=== PATIENT | female | born 1955 | race Caucasian/White ===

== ENCOUNTER 2016-06-21 12:49 | Outpatient (CLI) | payer OTHER | END 2016-06-21 12:50 | disposition home or self-care (01) | DX: N64.4 Mastodynia (principal); R92.1 Mammographic calcification found on diagnostic imaging of breast ==

== ENCOUNTER 2016-07-04 12:56 | Outpatient (CLI) | payer OTHER ==
[2016-07-04] MEDS ORDERED: BUFFERED LIDOCAINE 10 ML SYRINGE IU ONE (14:21)
[2016-07-04] MEDS ORDERED: BUPIVACAINE 0.5%-EPI 1:200000 PF 30 ML VIAL SUBQ ONE (14:21)
== END 2016-07-04 12:57 | disposition home or self-care (01) ==
DX: C50.411 Malignant neoplasm of upper-outer quadrant of right female breast (principal); D05.11 Intraductal carcinoma in situ of right breast; Z17.0 Estrogen receptor positive status [ER+]

== ENCOUNTER 2016-08-07 08:58 | Outpatient (CLI) | payer OTHER ==
[2016-08-07] MEDS ORDERED: GADOBUTROL 7.5 MMOL/7.5 ML VIAL IVP ONE (09:42)
== END 2016-08-07 08:59 | disposition home or self-care (01) ==
DX: C50.911 Malignant neoplasm of unspecified site of right female breast (principal)
CPT/HCPCS: 77059; A9585

== ENCOUNTER 2016-08-14 10:04 | Day surgery (SDC) | payer OTHER ==
[~2016-08-14 10:04] MED LIST: ceFAZolin 2 GM/50 ML 50 ML IV ONE
[2016-08-14] MEDS ORDERED: LACTATED RINGERS 1,000 ML IV ONE ×2 (12:11→15:59)
[2016-08-14] MEDS ORDERED: BUPIVACAINE 0.5% PF 30 ML VIAL INFIL ONE (14:48)
[2016-08-14] MEDS ORDERED: LIDOCAINE-MPF 2% 5 ML VIAL IM ONE (14:50)
[2016-08-14] MEDS ORDERED: fentaNYL 100 MCG/2 ML VIAL IVP ONE (14:50)
[2016-08-14] MEDS ORDERED: KETOROLAC 30 MG/ML VIAL IVP ONE (14:50)
[2016-08-14] MEDS ORDERED: DEXAMETHASONE 4 MG/ML VIAL IVP ONE (14:50)
[2016-08-14] MEDS ORDERED: ONDANSETRON 4 MG/2 ML VIAL IVP ONE (14:50)
[2016-08-14] MEDS ORDERED: PROPOFOL 200 MG/20 ML VIAL IVP ONE (14:50)
[2016-08-14] MEDS ORDERED: MIDAZOLAM 2 MG/2 ML VIAL IVP ONE (14:50)
[2016-08-14] MEDS ORDERED: BUFFERED LIDOCAINE 10 ML SYRINGE IU ONE (15:52)
[2016-08-14] MEDS ORDERED: BUPIVACAINE 0.25%-EPI 1:200000 PF 10 ML VIAL IM SCH (16:00)
[2016-08-14] MEDS ORDERED: oxyCOD/ACETAMIN 5 MG/325 MG TABLET PO ONE (17:05)
== END 2016-08-14 10:05 | disposition home or self-care (01) ==
PROC: 07B50ZX Excision of Right Axillary Lymphatic, Open Approach, Diagnostic (ICD-10-PCS; 2016-08-14)
PROC: C71L1ZZ Planar Nuclear Medicine Imaging of Upper Chest Lymphatics using Technetium 99m (Tc-99m) (ICD-10-PCS; 2016-08-14)
PROC: 0HBT0ZZ Excision of Right Breast, Open Approach (ICD-10-PCS; principal; 2016-08-14 12:30)
DX: D05.91 Unspecified type of carcinoma in situ of right breast (principal); E03.9 Hypothyroidism, unspecified; F41.0 Panic disorder [episodic paroxysmal anxiety]; Z90.710 Acquired absence of both cervix and uterus; Z80.3 Family history of malignant neoplasm of breast; Z80.0 Family history of malignant neoplasm of digestive organs; Z82.49 Family history of ischemic heart disease and other diseases of the circulatory system; Z82.3 Family history of stroke
CPT/HCPCS: 19281; 19301; 38500; 76098; 78195; A9270; A9541; J0690; J7120

== ENCOUNTER 2016-08-30 09:49 | Outpatient (CLI) | payer OTHER | END 2016-08-30 09:50 | disposition home or self-care (01) | DX: C50.911 Malignant neoplasm of unspecified site of right female breast (principal); L76.34 Postprocedural seroma of skin and subcutaneous tissue following other procedure ==

== ENCOUNTER 2017-06-10 08:00 | Outpatient (CLI) | payer OTHER ==
[2017-06-10 19:12] LABS: BASOPHILS % (AUTO) 0.8 %; EOSINOPHILS # (AUTO) 0.1 10^3/uL (0.0-0.7); EOSINOPHILS % (AUTO) 1.8 %; HGB - HEMOGLOBIN 12.9 g/dL (12.0-16.0); LYMPHOCYTES # (AUTO) 1.3 10^3/uL (1.5-3.5); LYMPHOCYTES % (AUTO) 21.4 %; MEAN CORPUSCULAR HEMOGLOBIN 31.1 pg (27.0-31.0); MEAN CORPUSCULAR HGB CONC 32.9 g/dL (32.0-36.0); MEAN CORPUSCULAR VOLUME 94.4 fL (81.0-99.0); MEAN PLATELET VOLUME 9.1 fL (7.9-10.8); MONOCYTES # (AUTO) 0.5 10^3/uL (0.0-1.0); MONOCYTES % (AUTO) 7.5 %; NEUTROPHILS # (AUTO) 4.2 10^3/uL (1.5-6.6); NEUTROPHILS % (AUTO) 68.5 %; PLT - PLATELET COUNT 298 10^3/uL (130-450); RED BLOOD COUNT 4.15 10^6/uL (4.20-5.40); RED CELL DISTRIBUTION WIDTH 13.1 % (12.0-15.0); WHITE BLOOD COUNT 6.2 x10^3/uL (4.8-10.8)
[2017-06-10 19:26] LABS: ALBUMIN 4.6 g/dL (3.2-5.5); ALBUMIN/GLOBULIN RATIO 1.9 (1.0-2.2); ALKALINE PHOSPHATASE 46 IU/L (42-121); ALT ALANINE AMINOTRANSFERASE 20 IU/L (10-60); AST ASPARTATE AMINOTRANSFERASE 23 IU/L (10-42); BILIRUBIN,TOTAL 0.6 mg/dL (0.2-1.0); BUN - BLOOD UREA NITROGEN 13 mg/dL (6-20); CALCIUM 9.5 mg/dL (8.5-10.3); CARBON DIOXIDE - CO2 27 mmol/L (21-32); CHLORIDE 99 mmol/L (101-111); CHOL/HDL RATIO 3.7 (<4.4); CHOLESTEROL 284 mg/dL; CREATININE 0.6 mg/dL (0.4-1.0); GFR - MDRD 102 (>89); GLUCOSE 110 mg/dL (70-100); HDL CHOLESTEROL 77 mg/dL; LDL CHOLESTEROL,CALCULATED 161 mg/dL; LDL/HDL RATIO 2.1 (<4.4); SODIUM 134 mmol/L (135-145); VLDL CHOLESTEROL 46 mg/dL
[2017-06-10 19:35] LABS: HB2 TOTAL 14.3 g/dL; HEMOGLOBIN A1C 0.53 g/dL; HEMOGLOBIN A1C % 5.5 % (4.6-6.2)
== END 2017-06-10 08:01 | disposition home or self-care (01) ==
LOC: LAB.WCP 08:00
PROVIDERS: ATTEND Family Medicine
DX: Z00.00 Encounter for general adult medical examination without abnormal findings (principal); R73.01 Impaired fasting glucose
CPT/HCPCS: 36415; 80053; 80061; 83036; 83721; 84443; 85025

== ENCOUNTER 2017-06-18 07:16 | Outpatient (CLI) | payer OTHER ==
[2017-06-18] MEDS ORDERED: IOPAMIDOL-300 100 ML VIAL ONE (07:28)
[2017-06-18] MEDS ORDERED: IOPAMIDOL-300 50 ML VIAL ONE (07:28)
[2017-06-18] MEDS ORDERED: IOPAMIDOL-300 50 ML VIAL PO ONE (08:37)
[2017-06-18] MEDS ORDERED: IOPAMIDOL-300 100 ML VIAL IVP ONE (08:37)
--- NOTE | 2017-06-18 19:32 | CT Report ---
DATE OF SERVICE: 06/18/2017 CT ABDOMEN AND PELVIS WITH CONTRAST: 06/18/2017 CLINICAL INDICATION: Left lower quadrant abdominal pain. COMPARISON: 01/11/[address] images of the abdomen and pelvis were obtained with 100 mL Isovue 300 intravenously as well as oral contrast. In accordance with CT protocol optimization, one or more of the following dose reduction techniques were utilized for this exam: Automated exposure control, adjustment of mA and/or KV based on patient size, or use of iterative reconstructive technique. Limited evaluation of the lung bases is unremarkable. ABDOMEN: The liver, spleen, pancreas, kidneys and adrenal glands are unremarkable. The gallbladder is not dilated. No bowel dilatation, free gas, or free fluid is present. PELVIS: Multiple colonic diverticula are present. There is pericolonic inflammation at the junction between the descending and sigmoid colon, compatible with uncomplicated diverticulitis. No abscess or perforation is identified. No free fluid is present. Postoperative changes of hysterectomy are noted. The appendix is seen in the right lower quadrant, and is normal in caliber. No adenopathy is identified. IMPRESSION: Uncomplicated diverticulitis of the distal descending/proximal sigmoid colon. No evidence of bladder fistula. TD: 06/18/2017 20:31
== END 2017-06-18 07:17 | disposition home or self-care (01) ==
LOC: DI 07:16
PROVIDERS: ATTEND Family Medicine
DX: R10.32 Left lower quadrant pain (principal); K57.32 Diverticulitis of large intestine without perforation or abscess without bleeding
CPT/HCPCS: 74177; Q9967

== ENCOUNTER 2017-07-04 08:44 | Outpatient (CLI) | payer OTHER ==
--- NOTE | 2017-07-04 17:51 | Mammography Report ---
DIGITAL DIAGNOSTIC BILATERAL MAMMOGRAM: 07/04/2017 CLINICAL INDICATION: History of right ductal carcinoma in situ, status post lumpectomy and radiation therapy. TECHNIQUE: Bilateral CC and MLO views, right true lateral and spot magnification views. COMPARISON: 08/30/2016, 06/21/2016, 06/16/2015, 11/17/2014, 05/28/2014, 2013, 06/15/2013, 06/05/2013. FINDINGS: The breasts demonstrate heterogeneously dense fibroglandular parenchyma bilaterally. Postoperative and posttreatment changes are noted in the right breast. Previously seen right breast seromas have resolved. A few coarse, typically benign calcifications are present. No suspicious masses, clustered microcalcifications, or regions of architectural distortion are identified. IMPRESSION: BENIGN FINDINGS. RECOMMENDATION: Routine annual screening unless otherwise clinically indicated. BIRADS category: 2, benign findings. STANDARD QUALIFYING STATEMENTS 1. This examination was reviewed with the aid of Computed-Aided Detection (CAD) . 2. A negative or benign imaging report should not delay biopsy if clinically suspicious findings are present. Consider surgical consultation if warranted. More than 5 % of cancers are not identified by imaging. 3. Dense breasts may obscure an underlying neoplasm. TD: 07/04/2017 17:50 CITLALLI
== END 2017-07-04 08:45 | disposition home or self-care (01) ==
LOC: DI 08:44
PROVIDERS: ATTEND Internal Medicine Hematology & Oncology
DX: C50.411 Malignant neoplasm of upper-outer quadrant of right female breast (principal)
CPT/HCPCS: 77066

== ENCOUNTER 2017-10-03 08:00 | Outpatient (CLI) | payer OTHER ==
[2017-10-03 13:01] LABS: CHOL/HDL RATIO 4.1 (<4.4); CHOLESTEROL 294 mg/dL; HDL CHOLESTEROL 72 mg/dL; LDL CHOLESTEROL,CALCULATED 198 mg/dL; LDL/HDL RATIO 2.8 (<4.4); VLDL CHOLESTEROL 24 mg/dL
== END 2017-10-03 08:01 ==
LOC: LAB.WCP 08:00
PROVIDERS: ATTEND Naturopath
DX: M85.80 Other specified disorders of bone density and structure, unspecified site (principal); E78.00 Pure hypercholesterolemia, unspecified
CPT/HCPCS: 36415; 80061; 82306; 83721

== ENCOUNTER 2018-01-21 14:35 | Outpatient (CLI) | payer OTHER ==
--- NOTE | 2018-01-21 15:34 | Mammography Report ---
Reason: RT BREAST CA Procedure Date: 01/21/2018 Accession Number: [id number] / [id number] Procedure: YARIEL - Diagnostic Dig RT CPT Code: FULL RESULT: EXAM: Diagnostic Dig RT DATE: 01/21/2018 3:11 PM CLINICAL HISTORY: Status post right lumpectomy for breast cancer TECHNIQUE: Unilateral right CC and MLO projections COMPARISON: 07/04/2017, 08/30/2016, 07/04/2016, 06/21/2016 and 06/16/2015 FINDINGS: There are scattered fibroglandular densities. Postsurgical changes in the right breast are similar to previous. No new suspicious microcalcifications or dominant mass. IMPRESSION: Benign findings RECOMMENDATION: Follow-up bilateral mammography in 6 months to include magnification views on the right. BIRADS CATEGORY 2: Benign findings STANDARD QUALIFYING STATEMENTS: 1. This examination was reviewed with the aid of Computer-Aided Detection (CAD). 2. A negative or benign imaging report should not delay biopsy if clinically suspicious findings are present. Consider surgical consultation if warrented. More than 5% of cancers are not identified by imaging. 3. Dense breasts may obscure an underlying neoplasm.
== END 2018-01-21 14:36 | disposition home or self-care (01) ==
LOC: DI 14:35
PROVIDERS: ATTEND Family Medicine
DX: C50.911 Malignant neoplasm of unspecified site of right female breast (principal)

== ENCOUNTER 2018-02-11 09:27 | Outpatient (CLI) | payer OTHER ==
--- NOTE | 2018-02-11 11:10 | Ultrasound Report ---
Reason: R BREAST INVASIVE DUCTAL CARCINOMA Procedure Date: 02/11/2018 Accession Number: [id number] / [id number] Procedure: US - Breast Unilateral Limited CPT Code: FULL RESULT: EXAM: Breast Unilateral Limited DATE: 02/11/2018 10:31 AM CLINICAL HISTORY: Right breast invasive ductal carcinoma status post lumpectomy. COMPARISON: Mammogram 01/21/2018. FINDINGS AND TECHNIQUE: Focused breast ultrasound was performed over the area of concern near the exam which is causing the patient discomfort and feels swollen to the patient. Normal scar tissue is identified as well as a 0.5 x 0.4 cm fluid collection deep to the scar which is surrounded by a hypoechoic 2 mm rim. This is felt to represent postsurgical changes, possibly a seroma and therefore probably benign. IMPRESSION: Probably benign postsurgical changes. Recommendation: Diagnostic ultrasound in 6 months. BI-RADS 3 RADIA
== END 2018-02-11 09:28 | disposition home or self-care (01) ==
LOC: DI 09:27
PROVIDERS: ATTEND Internal Medicine Hematology & Oncology
DX: D05.11 Intraductal carcinoma in situ of right breast (principal)
CPT/HCPCS: 76642

== ENCOUNTER 2018-06-13 08:00 | Outpatient (CLI) | payer BC ==
[2018-06-13 13:36] LABS: BASOPHILS % (AUTO) 0.8 %; EOSINOPHILS # (AUTO) 0.3 10^3/uL (0.0-0.7); EOSINOPHILS % (AUTO) 6.2 %; HGB - HEMOGLOBIN 13.1 g/dL (12.0-16.0); LYMPHOCYTES # (AUTO) 1.2 10^3/uL (1.5-3.5); LYMPHOCYTES % (AUTO) 24.8 %; MEAN CORPUSCULAR HEMOGLOBIN 31.5 pg (27.0-31.0); MEAN CORPUSCULAR HGB CONC 33.9 g/dL (32.0-36.0); MEAN CORPUSCULAR VOLUME 92.7 fL (81.0-99.0); MEAN PLATELET VOLUME 8.7 fL (7.9-10.8); MONOCYTES # (AUTO) 0.5 10^3/uL (0.0-1.0); MONOCYTES % (AUTO) 11.3 %; NEUTROPHILS # (AUTO) 2.7 10^3/uL (1.5-6.6); NEUTROPHILS % (AUTO) 56.9 %; PLT - PLATELET COUNT 270 10^3/uL (130-450); RED BLOOD COUNT 4.16 10^6/uL (4.20-5.40); RED CELL DISTRIBUTION WIDTH 12.9 % (12.0-15.0); WHITE BLOOD COUNT 4.8 x10^3/uL (4.8-10.8)
[2018-06-13 13:55] LABS: ALBUMIN 4.1 g/dL (3.2-5.5); ALBUMIN/GLOBULIN RATIO 1.7 (1.0-2.2); ALKALINE PHOSPHATASE 43 IU/L (42-121); ALT ALANINE AMINOTRANSFERASE 19 IU/L (10-60); AST ASPARTATE AMINOTRANSFERASE 21 IU/L (10-42); BILIRUBIN,TOTAL 0.5 mg/dL (0.2-1.0); BUN - BLOOD UREA NITROGEN 16 mg/dL (6-20); CALCIUM 9.3 mg/dL (8.5-10.3); CARBON DIOXIDE - CO2 29 mmol/L (21-32); CHLORIDE 99 mmol/L (101-111); CHOL/HDL RATIO 3.9 (<4.4); CHOLESTEROL 295 mg/dL; CREATININE 0.6 mg/dL (0.4-1.0); GFR - MDRD 102 (>89); GLUCOSE 98 mg/dL (70-100); HDL CHOLESTEROL 76 mg/dL; LDL CHOLESTEROL,CALCULATED 183 mg/dL; LDL/HDL RATIO 2.4 (<4.4); MAGNESIUM 2.5 mg/dL (1.7-2.8); SODIUM 134 mmol/L (135-145); TOTAL PROTEIN 6.5 g/dL (6.7-8.2); VLDL CHOLESTEROL 36 mg/dL
== END 2018-06-13 23:59 | disposition home or self-care (01) ==
LOC: LAB.WCP 08:00
PROVIDERS: ATTEND Family Medicine
DX: C50.919 Malignant neoplasm of unspecified site of unspecified female breast (principal); E03.9 Hypothyroidism, unspecified; E78.5 Hyperlipidemia, unspecified; R00.2 Palpitations
CPT/HCPCS: 36415; 80053; 80061; 83721; 83735; 84443; 85025

== ENCOUNTER 2018-07-09 12:45 | Outpatient (CLI) | payer BC | END 2018-07-09 12:46 | disposition home or self-care (01) | LOC: DI 12:45 | PROVIDERS: ATTEND Family Medicine | DX: R00.2 Palpitations (principal); Z92.3 Personal history of irradiation | CPT/HCPCS: 93306 ==

== ENCOUNTER 2018-07-23 12:40 | Outpatient (CLI) | payer BC ==
--- NOTE | 2018-07-23 17:25 | Ultrasound Report ---
Reason: RT BREAST INVASIVE DUCTAL CARCINOMA Procedure Date: 07/23/2018 Accession Number: [id number] / [id number] Procedure: US - Breast Unilateral Limited CPT Code: FULL RESULT: EXAM: Breast Unilateral Limited DATE: 07/23/2018 3:30 PM CLINICAL HISTORY: RT BREAST INVASIVE DUCTAL CARCINOMA COMPARISON: Mammogram 01/21/2018 and ultrasound 02/11/2018. FINDINGS AND TECHNIQUE: Focused breast ultrasound was performed over the area area of the incisional scar, previously seen focal area of concern. Normal-appearing scar tissue is identified with interval resolution of a previously seen 0.5 x 0.4 cm fluid collection deep to the scar, probably benign. No suspicious interval mass or collection. IMPRESSION: Probably benign postsurgical changes. Recommendation: Diagnostic right breast mammogram in 6 months and annual left breast screening mammography. BI-RADS 3 RADIA
== END 2018-07-23 12:41 | disposition home or self-care (01) ==
LOC: DI 12:40
PROVIDERS: ATTEND Family Medicine
DX: C50.911 Malignant neoplasm of unspecified site of right female breast (principal)
CPT/HCPCS: 76642

== ENCOUNTER 2018-07-23 12:41 | Outpatient (CLI) | payer BC ==
--- NOTE | 2018-07-24 08:15 | Mammography Report ---
Reason: ANNUAL / HX RIGHT BREAST CA 2017 Procedure Date: 07/24/2018 Accession Number: [id number] / [id number] Procedure: YARIEL - Diagnostic Bilat 3D Jackson CPT Code: 30328 FULL RESULT: EXAM: Diagnostic Dig Bilat, Diagnostic Bilat 3D Jackson DATE: 07/24/2018 7:58 AM CLINICAL HISTORY: Diagnostic encounter. History of nulliparity. History of breast cancer status post right breast lumpectomy and radiation. TECHNIQUE: Bilateral CC and MLO and laterally exaggerated CC images are obtained. Right spot CC, right spot ML and right ML images were also obtained. COMPARISON: 01/21/2018 and 07/04/2017. FINDINGS: The breasts demonstrate scattered fibroglandular densities bilaterally. Right breast postsurgical changes are redemonstrated without suspicious interval development of mass, calcifications or unexpected architectural distortion, probably benign. No suspicious calcifications, masses or architectural distortion is seen in the left breast. IMPRESSION: Probable benign findings RECOMMENDATION: Recommend diagnostic right mammogram in 6 months, annual screening mammography of the left breast. BIRADS CATEGORY 3 STANDARD QUALIFYING STATEMENTS: 1. This examination was not reviewed with the aid of Computer-Aided Detection (CAD). 2. A negative or benign imaging report should not delay biopsy if clinically suspicious findings are present. Consider surgical consultation if warrented. More than 5% of cancers are not identified by imaging. 3. Dense breasts may obscure an underlying neoplasm. 4. This examination was reviewed with the aid of 3D imaging (tomography).
--- NOTE | 2018-07-24 08:15 | Mammography Report ---
Reason: ANNUAL / HX OF BREAST CA 2017 Procedure Date: 07/24/2018 Accession Number: [id number] / [id number] Procedure: YARIEL - Diagnostic Dig Bilat CPT Code: FULL RESULT: EXAM: Diagnostic Dig Bilat, Diagnostic Bilat 3D Jackson DATE: 07/24/2018 7:58 AM CLINICAL HISTORY: Diagnostic encounter. History of nulliparity. History of breast cancer status post right breast lumpectomy and radiation. TECHNIQUE: Bilateral CC and MLO and laterally exaggerated CC images are obtained. Right spot CC, right spot ML and right ML images were also obtained. COMPARISON: 01/21/2018 and 07/04/2017. FINDINGS: The breasts demonstrate scattered fibroglandular densities bilaterally. Right breast postsurgical changes are redemonstrated without suspicious interval development of mass, calcifications or unexpected architectural distortion, probably benign. No suspicious calcifications, masses or architectural distortion is seen in the left breast. IMPRESSION: Probable benign findings RECOMMENDATION: Recommend diagnostic right mammogram in 6 months, annual screening mammography of the left breast. BIRADS CATEGORY 3 STANDARD QUALIFYING STATEMENTS: 1. This examination was not reviewed with the aid of Computer-Aided Detection (CAD). 2. A negative or benign imaging report should not delay biopsy if clinically suspicious findings are present. Consider surgical consultation if warrented. More than 5% of cancers are not identified by imaging. 3. Dense breasts may obscure an underlying neoplasm. 4. This examination was reviewed with the aid of 3D imaging (tomography).
--- NOTE | 2018-07-24 08:49 | DEXA Report ---
Reason: R BREAST INVASIVE DUCTAL CARCINOMA Procedure Date: 07/23/2018 Accession Number: [id number] / [id number] Procedure: DEX - Dexa Spine and/or Hip CPT Code: FULL RESULT: EXAM: Dexa Spine and/or Hip DATE: 07/23/2018 2:17 PM CLINICAL HISTORY: R BREAST INVASIVE DUCTAL CARCINOMA TECHNIQUE: Dual energy x-ray absorptiometry (DXA) was performed on a [employer] System. Regions measured are the AP Spine, femoral neck, and if needed forearm. COMPARISON: 10/29/2016. In accordance with the International Society for Clinical Densitometry (ISCD) guidelines, data from previous exams may be reanalyzed using current recommendations and techniques. This is done to allow a more accurate basis for comparison with the current study. FINDINGS: The data for the lumbar spine is as follows: BMD (g/cm/cm) T-SCORE Z-SCORE REGION L1 0.931 -1.7 0.0 L2 1.004 -1.6 0.0 L3 1.063 -1.1 0.5 L4 1.090 -0.9 0.7 TOTAL 1.026 -1.3 0.4 NOTE: All evaluable vertebrae are used for classification The data for the hip is as follows: BMD (g/cm/cm) T-SCORE Z-SCORE REGION Neck 0.893 -1.0 0.5 TOTAL 0.923 -0.7 0.6 NOTE: The femoral neck or total proximal femur, whichever is lowest, is used for classification. DXA RESULTS SUMMARY: Spine SCAN DATE AGE BMD CHANGE VS CHANGE VS PREVIOUS PREVIOUS % [birth year][age]23[birth year]2018 [age] 1.026 0.002 0.2 10/29/2016 61.5 1.024 * Denotes significant change at the 95% confidence level. Denotes dissimilar scan types or analysis methods. DXA RESULTS SUMMARY: Hip SCAN DATE AGE BMD CHANGE VS CHANGE VS PREVIOUS PREVIOUS % [birth year]23/2018 61.2 0.923 -0.030 -3.1 10/29/2016 61.5 0.953 * Denotes significant change at the 95% confidence level. Denotes dissimilar scan types or analysis methods. IMPRESSION: THE WHO CLASSIFICATION BASED ON THE INTERNATIONAL REFERENCE STANDARD IS OSTEOPENIA. THE FRACTURE RISK IS INCREASED. RECOMMENDATION: Patients with diagnosis of osteoporosis or osteopenia should have regular bone mineral density assessment. For those eligible for Medicare, routine testing is allowed once every 2 years. Testing frequency can be increased for patients who have rapidly progressing disease or for those who are receiving medical therapy to restore bone mass. COMMENT: World Health Organization (WHO) definitions for osteoporosis and osteopenia: NORMAL BMD: T-score at -1.0 or higher, fracture risk is low OSTEOPENIA BMD: T-score between -1.0 and -2.5, fracture risk is increased. OSTEOPOROSIS BMD: T-score at -2.5 or lower, fracture risk is high. National Osteoporosis Foundation recommends: 1. Obtain adequate dietary calcium (at least 1200 mg per day) and vitamin D (400-800 international units per day). 2. Participate, as appropriate, in regular weightbearing and muscle-strengthening exercise. 3. Avoid tobacco use and reduce alcohol and caffeine intake. 4. For more detailed information see the website at www.NOF.org.
== END 2018-07-23 12:42 | disposition home or self-care (01) ==
LOC: DI 12:41
PROVIDERS: ATTEND Internal Medicine Hematology & Oncology
DX: C50.911 Malignant neoplasm of unspecified site of right female breast (principal); M85.89 Other specified disorders of bone density and structure, multiple sites
CPT/HCPCS: 76642; 77062; 77066; 77080

== ENCOUNTER 2019-01-15 08:50 | Outpatient (CLI) | payer BC ==
--- NOTE | 2019-01-15 09:55 | Mammography Report ---
Reason: RT BREAST INVASIVE DUCTAL CA Procedure Date: 01/15/2019 Accession Number: [id number] / [id number] Procedure: YARIEL - Diagnostic Dig RT CPT Code: FULL RESULT: EXAM: Diagnostic Dig RT DATE: 01/15/2019 9:45 AM CLINICAL HISTORY: Diagnostic examination. Personal history of right breast cancer status post lumpectomy in July 2016. TECHNIQUE: (R) - Right CC, laterally exaggerated CC, MLO views were obtained. Right ML view was obtained. COMPARISON: 07/23/2018 through 06/16/2015. PARENCHYMAL PATTERN: (A) - The breast(s) demonstrate(s) scattered fibroglandular densities. FINDINGS: Postsurgical changes in the right breast demonstrate expected interval evolution, probably benign. There are no suspicious masses, calcifications, or areas of distortion. IMPRESSION: Probably Benign. BI-RADS category 3. RECOMMENDATION: (12MOS) - Recommend 12 month follow-up exam. Diagnostic exam of the right breast at the time of annual screening mammography of the left breast. BI-RADS CATEGORY: (3) - Probably Benign. STANDARD QUALIFYING STATEMENTS: 1. This examination was not reviewed with the aid of Computer-Aided Detection (CAD). 2. A negative or benign imaging report should not preclude biopsy if clinically suspicious findings are present. 3. Dense breasts may obscure an underlying neoplasm. 4. This examination was reviewed with the aid of 3D breast imaging (tomosynthesis).
== END 2019-01-15 08:51 | disposition home or self-care (01) ==
LOC: DI 08:50
PROVIDERS: ATTEND Internal Medicine Hematology & Oncology
DX: C50.911 Malignant neoplasm of unspecified site of right female breast (principal)

== ENCOUNTER 2019-06-16 07:55 | Outpatient (CLI) | payer MEDICAID ==
[2019-06-16 08:17] LABS: BASOPHILS % (AUTO) 0.6 %; EOSINOPHILS # (AUTO) 0.1 10^3/uL (0.0-0.7); EOSINOPHILS % (AUTO) 2.4 %; LYMPHOCYTES # (AUTO) 1.5 10^3/uL (1.5-3.5); LYMPHOCYTES % (AUTO) 31.8 %; MEAN CORPUSCULAR HEMOGLOBIN 30.6 pg (27.0-31.0); MEAN CORPUSCULAR HGB CONC 32.5 g/dL (32.0-36.0); MEAN CORPUSCULAR VOLUME 94.1 fL (81.0-99.0); MEAN PLATELET VOLUME 9.5 fL (7.9-10.8); MONOCYTES # (AUTO) 0.5 10^3/uL (0.0-1.0); MONOCYTES % (AUTO) 11.4 %; NEUTROPHILS # (AUTO) 2.5 10^3/uL (1.5-6.6); NEUTROPHILS % (AUTO) 53.6 %; PLT - PLATELET COUNT 264 10^3/uL (130-450); RED BLOOD COUNT 4.25 10^6/uL (4.20-5.40); RED CELL DISTRIBUTION WIDTH 11.9 % (12.0-15.0); WHITE BLOOD COUNT 4.7 x10^3/uL (4.8-10.8)
[2019-06-16 08:29] LABS: ALBUMIN 4.4 g/dL (3.2-5.5); ALBUMIN/GLOBULIN RATIO 1.8 (1.0-2.2); ALKALINE PHOSPHATASE 37 IU/L (42-121); ALT ALANINE AMINOTRANSFERASE 21 IU/L (10-60); AST ASPARTATE AMINOTRANSFERASE 19 IU/L (10-42); BILIRUBIN,TOTAL 0.9 mg/dL (0.2-1.0); BUN - BLOOD UREA NITROGEN 15 mg/dL (6-20); CALCIUM 9.2 mg/dL (8.5-10.3); CARBON DIOXIDE - CO2 28 mmol/L (21-32); CHLORIDE 96 mmol/L (101-111); CHOL/HDL RATIO 4.5 (<4.4); CHOLESTEROL 318 mg/dL; CREATININE 0.7 mg/dL (0.4-1.0); GFR - MDRD 85 (>89); GLUCOSE 111 mg/dL (70-100); HDL CHOLESTEROL 71 mg/dL; LDL CHOLESTEROL,CALCULATED 215 mg/dL; SODIUM 135 mmol/L (135-145); TOTAL PROTEIN 6.9 g/dL (6.7-8.2); VLDL CHOLESTEROL 32 mg/dL
[2019-06-16 08:36] LABS: HEMOGLOBIN A1C 0.57 g/dL; HEMOGLOBIN A1C % 5.9 % (4.6-6.2)
== END 2019-06-16 07:56 | disposition home or self-care (01) ==
LOC: LAB 07:55
PROVIDERS: ATTEND Family Medicine
DX: Z00.00 Encounter for general adult medical examination without abnormal findings (principal); E78.5 Hyperlipidemia, unspecified; R73.01 Impaired fasting glucose; E03.9 Hypothyroidism, unspecified
CPT/HCPCS: 36415; 80053; 80061; 83036; 83721; 84443; 85025

== ENCOUNTER 2019-07-23 09:17 | Outpatient (CLI) | payer MEDICAID ==
--- NOTE | 2019-07-23 16:09 | Mammography Report ---
Reason: RT BREAST CA Procedure Date: 07/23/2019 Accession Number: [id number] / [id number] Procedure: YARIEL - Diagnostic Dig Bilat CPT Code: Final Report FULL RESULT: EXAM: Diagnostic Dig Bilat, Breast Unilateral Limited DATE: 07/23/2019 10:38 AM CLINICAL HISTORY: Personal history of right breast cancer status post right breast lumpectomy in 2017. TECHNIQUE: (B) - Bilateral CC and MLO views were obtained. Right spot CC, right laterally exaggerated CC, right spot MLO and right ML images are obtained. Focused right breast ultrasound is performed. COMPARISON: 01/15/2019 through 05/31/2009. PARENCHYMAL PATTERN: (A) - The breast(s) demonstrate(s) scattered fibroglandular densities. FINDINGS: Postsurgical changes in the right breast are again seen with interval evolution of the surgical scar including increased architectural distortion and subjectively decreased volume of the central hyperdensity. Focused right breast ultrasound is performed which demonstrates no interval increase in size of the central solid soft tissue component to the surgical site with overall maximal dimensions of 0.6 x 0.6 x 0.6 cm when remeasured in similar fashion, not increased and probably benign. There are no suspicious masses, calcifications, or areas of distortion on either side. IMPRESSION: Probably Benign. BI-RADS category 3. RECOMMENDATION: (6MOS) - Recommend 6 month follow-up exam. Right breast mammogram and ultrasound. BI-RADS CATEGORY: (3) - Probably Benign. STANDARD QUALIFYING STATEMENTS: 1. This examination was not reviewed with the aid of Computer-Aided Detection (CAD). 2. A negative or benign imaging report should not preclude biopsy if clinically suspicious findings are present. 3. Dense breasts may obscure an underlying neoplasm. 4. This examination was reviewed with the aid of 3D breast imaging (tomosynthesis).
== END 2019-07-23 09:18 | disposition home or self-care (01) ==
LOC: DI 09:17
PROVIDERS: ATTEND Internal Medicine Hematology & Oncology
DX: C50.911 Malignant neoplasm of unspecified site of right female breast (principal)
CPT/HCPCS: 76642; 77066

== ENCOUNTER 2020-01-04 07:18 | Outpatient (CLI) | payer MEDICAID ==
[2020-01-04] MEDS ORDERED: GADOBUTROL 7.5 MMOL/7.5 ML VIAL ONE (07:30)
[2020-01-04] MEDS ORDERED: GADOBUTROL 7.5 MMOL/7.5 ML VIAL IVP ONE (08:22)
--- NOTE | 2020-01-12 09:27 | MRI Report ---
BREAST MRI OF BOTH BREASTS: 01/04/2020 CLINICAL: Post right lumpectomy. PROCEDURE: MR BREAST BILATERAL WITH CAD INDICATIONS: 2017 lumpectomy, right side. follow up exam. TECHNIQUE: The patient was placed prone in a dedicated breast imaging coil. Precontrast axial STIR and 3D FLASH without fat saturation sequences were obtained. Both before and after bolus injection of contrast, sequential 1-minute axial 3D FLASH with fat saturation sequences for 3 time points, with subtraction images and maximum intensity projections (MIPs) generated. Delayed sagittal FLASH images with fat s aturation were also obtained. Computer-aided detection, including computer algorithm analysis of MRI image data for lesion detectio n and characterization, pharmacokinetic analysis, with further physician review for interpretation, w as performed. COMPARISON: None. FINDINGS: Image quality: Excellent. There is minimal right and moderate left background parenchymal enhancement. Right breast: Lumpectomy scar is present within the lower outer quadrant of the right breast. No orta spicious enhancement or mass lesions within the right breast. Left breast: No suspicious enhancement or mass lesions within the left breast. Miscellaneous: No axillary or intramammary adenopathy. Visualized portions of the heart, mediastinu m, lungs, and upper abdomen are grossly unremarkable. IMPRESSION: NEGATIVE Postsurgical change. No suspicious findings. Negative breast MRI. This exam was interpreted at Station ID: [id number]. Electronically Signed By: Lisa Collier M.D. lk/:01/07/2020 10:25:10 ACR BI-RADS Category 1: Negative 3341F BI-RADS CATEGORY: (1) - 1 RECOMMENDATION: (ADDMAM) - Recommend additional mammographic views. recall n/a LATERALITY: (B)
== END 2020-01-04 07:19 | disposition home or self-care (01) ==
LOC: DI 07:18
PROVIDERS: ATTEND Internal Medicine Hematology & Oncology
DX: Z08 Encounter for follow-up examination after completed treatment for malignant neoplasm (principal); Z85.3 Personal history of malignant neoplasm of breast
CPT/HCPCS: 77049; A9585

== ENCOUNTER 2020-02-05 08:44 | Outpatient (CLI) | payer MEDICAID ==
--- NOTE | 2020-02-10 08:42 | Ultrasound Report ---
LIMITED ULTRASOUND OF RIGHT BREAST: 02/05/2020 CLINICAL: Short term follow up right breast biopsy. Comparison is made to exams dated: 02/05/2020 mammogram and 01/04/2020 breast MRI - [facility]. Color flow and real-time ultrasound of the right breast were performed. Feldman scale images of the alfonso l-time examination were reviewed. There is a stable benign irregular post-surgical scar in the right breast at 10 o'clock middle depth. This irregular post-surgical scar is hypoechoic. This correlates with mammography findings. Color flow imaging demonstrates that there is no vascularity present. No discrete soft tissue nodule is s een on the current exam to correspond to the previously mentioned 6mm nodule. IMPRESSION: BENIGN There is no sonographic evidence of malignancy. The irregular post-surgical scar in the right breast is stable and benign. Return to annual mammogram screening schedule is recommended. Future imaging is recommended as follows: 07/23/2020 screening mammogram. Findings and recommendations were conveyed to the patient at time of exam. This exam was interpreted at Station ID: [id number]. Electronically Signed By: Emily hernandez/:02/05/2020 10:48:48 Ultrasound BI-RADS: 2 Benign BI-RADS CATEGORY: (2) - 2 RECOMMENDATION: (ANNUAL) - Recommend routine annual screening mammography. [id number] return to screening LATERALITY: (B)
--- NOTE | 2020-02-10 08:42 | Mammography Report ---
BILATERAL DIGITAL DIAGNOSTIC MAMMOGRAM 3D/2D: 02/05/2020 CLINICAL: Mother with breast cancer.Routine screening. Personal history of right breast cancer. Comparison is made to exams dated: 01/04/2020 breast MRI, 07/23/2019 ultrasound, 07/23/2019 mammogram, ultrasound, 01/15/2019 mammogram, and 07/23/2018 ultrasound - [facility]. The re are scattered fibroglandular elements in both breasts. The patient is status post lumpectomy right breast in the upper outer quadrant. No significant masses, calcifications, or other findings are seen in either breast. IMPRESSION: INCOMPLETE: NEEDS ADDITIONAL IMAGING EVALUATION Stable mammograms with post surgical changes in the right breast. Ultrasound of the right breast recommended and was performed following this exam to ensure stability of post surgical changes. Future imaging is recommended as follows: 07/23/2020 screening mammogram. This exam was interpreted at Station ID: [id number]. NOTE: For mammograms, a report in lay terms will be sent to the patient. Approximately 15% of breast malignancies will not be visualized mammographically. In the management of a palpable breast mass, a negative mammogram must not discourage biopsy of a clinically suspicious lesion. Electronically Signed By: Emily hernandez/:02/05/2020 10:04:58 ACR BI-RADS Category 0: Incomplete 3340F PARENCHYMAL PATTERN: (A) - The breast(s) demonstrate(s) scattered fibroglandular densities. BI-RADS CATEGORY: (0) - 0 Ultrasound [id number] Immediate follow-up LATERALITY: (B)
== END 2020-02-05 08:45 | disposition home or self-care (01) ==
LOC: DI 08:44
PROVIDERS: ATTEND Internal Medicine Hematology & Oncology
DX: N63.10 Unspecified lump in the right breast, unspecified quadrant (principal); Z08 Encounter for follow-up examination after completed treatment for malignant neoplasm; Z85.3 Personal history of malignant neoplasm of breast; Z80.3 Family history of malignant neoplasm of breast
CPT/HCPCS: 76642; 77066

== ENCOUNTER 2020-07-28 09:43 | Outpatient (CLI) | payer MEDICAID ==
--- NOTE | 2020-07-28 15:33 | DEXA Report ---
PROCEDURE: Dexa Spine and/or Hip INDICATIONS: F U SUVEILLANCE OF BREAST CA, OSTEOPENIA TECHNIQUE: Dual energy x-ray absorptiometry (DXA) was performed on a [employer] System. Regions measur ed are the AP Spine, femoral neck, and if needed forearm. COMPARISON: DEXA 07/23/2018 FINDINGS: Lumbar Spine: Bone Mineral Density 0.974 g/cm/cm,T score -1.7, compared to -1.3 Left Hip: Bone Mineral Density 0.899 g/cm/cm,T score -0.9, compared to -0.7 Left Femoral Neck: Bone Mineral Density 0.877 g/cm/cm, T score -1.2, compared to -1.0 (T score greater or equal to -1.0: NORMAL) (T score from -1.1 to -2.4: OSTEOPENIA) (T score less than or equal to -2.5 to: OSTEOPOROSIS) Impression: Minimal osteopenia within the left femoral neck, moderate in the lumbar spine. There has been overall progressive loss of bone mineral density compared to prior exam. Patients with diagnosis of osteoporosis or osteopenia should have regular bone mineral density assess ment. For those eligible for Medicare, routine testing is allowed once every 2 years. Testing frequ ency can be increased for patients who have rapidly progressing disease or for those who are receivin g medical therapy to restore bone mass. Reviewed by: Judith Booth MD on 07/28/2020 3:32 PM PST Approved by: Judith Booth MD on 07/28/2020 3:32 PM PST Station ID: [id number]
== END 2020-07-28 09:44 | disposition home or self-care (01) ==
LOC: DI 09:43
PROVIDERS: ATTEND Internal Medicine Hematology & Oncology
DX: M85.89 Other specified disorders of bone density and structure, multiple sites (principal)

== ENCOUNTER 2020-08-01 07:35 | Outpatient (CLI) | payer MEDICAID ==
[2020-08-01 07:58] LABS: BASOPHILS % (AUTO) 0.8 %; EOSINOPHILS # (AUTO) 0.1 10^3/uL (0.0-0.7); EOSINOPHILS % (AUTO) 2.7 %; HCT - HEMATOCRIT 39.7 % (37.0-47.0); LYMPHOCYTES # (AUTO) 1.6 10^3/uL (1.5-3.5); LYMPHOCYTES % (AUTO) 30.6 %; MEAN CORPUSCULAR HEMOGLOBIN 31.4 pg (27.0-31.0); MEAN CORPUSCULAR HGB CONC 32.7 g/dL (32.0-36.0); MEAN CORPUSCULAR VOLUME 95.9 fL (81.0-99.0); MEAN PLATELET VOLUME 9.3 fL (7.9-10.8); MONOCYTES # (AUTO) 0.5 10^3/uL (0.0-1.0); MONOCYTES % (AUTO) 9.1 %; NEUTROPHILS # (AUTO) 2.9 10^3/uL (1.5-6.6); NEUTROPHILS % (AUTO) 56.6 %; PLT - PLATELET COUNT 252 10^3/uL (130-450); RED BLOOD COUNT 4.14 10^6/uL (4.20-5.40); RED CELL DISTRIBUTION WIDTH 11.9 % (12.0-15.0); WHITE BLOOD COUNT 5.2 x10^3/uL (4.8-10.8)
[2020-08-01 08:15] LABS: ALBUMIN 4.4 g/dL (3.2-5.5); ALBUMIN/GLOBULIN RATIO 1.8 (1.0-2.2); ALKALINE PHOSPHATASE 42 IU/L (42-121); ALT ALANINE AMINOTRANSFERASE 25 IU/L (10-60); AST ASPARTATE AMINOTRANSFERASE 21 IU/L (10-42); BILIRUBIN,TOTAL 0.8 mg/dL (0.2-1.0); BUN - BLOOD UREA NITROGEN 19 mg/dL (6-20); CALCIUM 9.6 mg/dL (8.5-10.3); CARBON DIOXIDE - CO2 27 mmol/L (21-32); CHLORIDE 99 mmol/L (101-111); CHOL/HDL RATIO 3.2 (<4.4); CHOLESTEROL 250 mg/dL; CREATININE 0.7 mg/dL (0.4-1.0); GFR - MDRD 85 (>89); GLUCOSE 108 mg/dL (70-100); HDL CHOLESTEROL 79 mg/dL; LDL CHOLESTEROL,CALCULATED 127 mg/dL; LDL/HDL RATIO 1.6 (<4.4); SODIUM 136 mmol/L (135-145); TOTAL PROTEIN 6.9 g/dL (6.7-8.2); TRIGLYCERIDES 220 mg/dL; VLDL CHOLESTEROL 44 mg/dL
[2020-08-01 08:28] LABS: THYROID STIMULATING HORMONE 1.17 uIU/mL (0.34-5.60)
[2020-08-01 12:21] LABS: ESTIMATED AVERAGE GLUCOSE 120 mg/dL (70-100); HEMOGLOBIN A1c% 5.8 % (4.27-6.07)
== END 2020-08-01 07:36 | disposition home or self-care (01) ==
LOC: LAB 07:35
PROVIDERS: ATTEND Internal Medicine Hematology & Oncology
DX: E78.5 Hyperlipidemia, unspecified (principal); R73.01 Impaired fasting glucose; E03.9 Hypothyroidism, unspecified; Z08 Encounter for follow-up examination after completed treatment for malignant neoplasm; Z85.3 Personal history of malignant neoplasm of breast
CPT/HCPCS: 36415; 80053; 80061; 83036; 83721; 84443; 85025

== ENCOUNTER 2020-09-30 10:06 | Outpatient (CLI) | payer MEDICAID | END 2020-09-30 10:07 | disposition home or self-care (01) | LOC: DI 10:06 | PROVIDERS: ATTEND Family Medicine | DX: Z53.9 Procedure and treatment not carried out, unspecified reason (principal) ==

== ENCOUNTER 2020-09-30 10:18 | Outpatient (CLI) | payer MEDICAID ==
--- NOTE | 2020-09-30 11:18 | XRAY Report ---
PROCEDURE: Ankle 3 View LT INDICATIONS: ANKLE PAIN, L TECHNIQUE: 3 views of the ankle were acquired. COMPARISON: None. FINDINGS: No acute fracture seen. Tibiotalar joint space grossly preserved. Soft tissues unremarkable. IMPRESSION: Negative examination. If the patient's pain or other symptoms persist, consider further evaluation with MRI. Reviewed by: Leo Juárez MD on 09/30/2020 11:17 AM PDT Approved by: Leo Juárez MD on 09/30/2020 11:17 AM PDT Station ID: [id number]
== END 2020-09-30 10:19 | disposition home or self-care (01) ==
LOC: DI 10:18
PROVIDERS: ATTEND Family Medicine
DX: M25.572 Pain in left ankle and joints of left foot (principal)

== ENCOUNTER 2021-01-10 12:00 | Day surgery (SDC) | payer MEDICAID ==
[2021-01-10] MEDS ORDERED: LACTATED RINGERS 1,000 ML IV ONE ×2 (12:07→13:29)
--- NOTE | 2021-01-10 12:29 | ANESTHESIA ---
Pre-Anesthesia VS, & Labs - Diagnosis history of colon polyps - Procedure colonoscopy Vital Signs: Temp Pulse Resp BP Pulse Ox 36.6 C 81 14 129/72 100 01/10/21 12:07 01/10/21 12:07 01/10/21 12:07 01/10/21 12:07 01/10/21 12:07 Height: 5 ft 1 in Weight (kg): 52.7 kg Body Mass Index: 21.9 BMI Classification: Healthy weight - NPO >8 hours - Is Patient ?: No Home Medications and Allergies Home Medications: Ambulatory Orders Simvastatin [Zocor] 20 mg PO DAILY 01/09/21 ALPRAZolam [Alprazolam] 0.5 - 1 tab PO DAILY PRN 06/10/15 Levothyroxine [Synthroid] 50 mcg PO QDAC 06/10/15 Acyclovir 400 mg PO TID PRN 07/24/16 Ascorbic Acid [Vitamin C] 1,000 mg PO BID 07/24/16 Calcium Carbonate [Calcium] 2 tab PO BID 07/24/16 Cholecalciferol (Vitamin D3) [Vitamin D3] 5,000 units PO DAILY 07/24/16 Cranberry Fruit Extract [Cranberry] 4,200 mg PO BID 07/24/16 Turmeric/Turmeric Root Extract [Turmeric] 500 mg PO DAILY 07/24/16 Vitamin B Complex [Balanced B-50] 1 tab PO DAILY 07/24/16 Anastrozole [Arimidex] 1 mg PO DAILY 02/12/17 Simvastatin [Zocor] 20 mg PO DAILY 01/09/21 Allergies/Adverse Reactions: Allergies Allergy/AdvReac Type Severity Reaction Status Date / Time erythromycin base AdvReac Cramps Verified 01/27/19 11:38 Anes History & Medical History - Anesthetic History Anesthesia Complications: reports: Post-Operative Nausea/Vomiting - Medical History Cardiovascular: reports: High cholesterol, Arrhythmia Pulmonary: reports: None Gastrointestinal: reports: Colon polyps, Diverticulitis Urinary: reports: None Neuro: reports: Headaches Musculoskeletal: reports: Osteoarthritis Endocrine/Autoimmune: reports: HyPOthyroidism Blood Disorders: reports: None Skin: reports: None Smoking Status: Never smoker Psychosocial: reports: Anxiety, Alcohol (red wine 1-2 glasses per day), Cannabis (occassional edible usage) History of Cancer?: Yes (s/p Radiation to breast) - Surgical History General: reports: Colonoscopy Eyes Ears Nose Throat (EENT): reports: Tonsil/Adenoidectomy Gynecologic: reports: Hysterectomy, Other Exam General: Alert, Oriented x3, Cooperative, No acute distress Dental: WNL Mouth Openin Fingerbreadth Neck Mobility: Normal Mallampati classification: II Thyromental Distance: 4-6 cm Mental/Cognitive Status: Alert/Oriented X3, Normal for patient Plan Anesthesia Type: Total IV Consent for Procedure(s) Verified and Reviewed: Yes Code Status: Attempt Resuscitation ASA classification: 2-Mild systemic disease Is this case an emergency?: No
[2021-01-10] MEDS ORDERED: PROPOFOL 200 MG/20 ML VIAL IVP ONE (13:01)
[2021-01-10 13:34] VITALS: BP 135/49
--- NOTE | 2021-01-10 15:28 | ANESTHESIA POST OP EVALUATION ---
Anesthesia Post Eval - Post Anesthesia Eval Vitals: Last Vital Signs Temp 36.3 C L 01/10/21 13:31 Pulse 75 01/10/21 13:31 Resp 13 01/10/21 13:31 BP 135/49 H 01/10/21 13:31 Pulse Ox 100 01/10/21 13:31 CV Function Including HR & BP: Stable Pain Control: Satisfactory Nausea & Vomiting: Negative Mental Status: Baseline Respiratory Status: Airway Patent Hydration Status: Satisfactory Anesthesia Complications: None
== END 2021-01-10 12:01 | disposition home or self-care (01) ==
LOC: SDS 12:00
PROVIDERS: ATTEND Surgery
PROC: 0DBK8ZZ Excision of Ascending Colon, Via Natural or Artificial Opening Endoscopic (ICD-10-PCS; principal; 2021-01-10 13:15)
DX: Z12.11 Encounter for screening for malignant neoplasm of colon (principal); Z86.010 Personal history of colon polyps; K63.89 Other specified diseases of intestine; K57.30 Diverticulosis of large intestine without perforation or abscess without bleeding; K64.8 Other hemorrhoids; C50.911 Malignant neoplasm of unspecified site of right female breast; E03.9 Hypothyroidism, unspecified; E78.00 Pure hypercholesterolemia, unspecified; F41.0 Panic disorder [episodic paroxysmal anxiety]; F40.240 Claustrophobia; Z79.899 Other long term (current) drug therapy; Z92.3 Personal history of irradiation
CPT/HCPCS: 45380; J7120

== ENCOUNTER 2021-02-06 10:21 | Outpatient (CLI) | payer MEDICAID ==
--- NOTE | 2021-02-07 13:00 | Mammography Report ---
BILATERAL DIGITAL SCREENING MAMMOGRAM 3D/2D: 02/06/2021 CLINICAL: Routine screening. Personal history of right breast cancer. Comparison is made to exams dated: 02/05/2020 ultrasound, 02/05/2020 mammogram, 01/04/2020 breast MRI, 07/23/2019 ultrasound, 07/23/2019 mammogram, and 02/11/2019 ultrasound - [facility]. Th ere are scattered fibroglandular elements in both breasts. There are benign post operative findings in the right breast. No significant masses, calcifications, or other findings are seen in either breast. There has been no significant interval change. IMPRESSION: BENIGN There is no mammographic evidence of malignancy. A 1 year screening mammogram is recommended. This exam was interpreted at Station ID: [id number]. NOTE: For mammograms, a report in lay terms will be sent to the patient. Approximately 15% of breast malignancies will not be visualized mammographically. In the management of a palpable breast mass, a negative mammogram must not discourage biopsy of a clinically suspicious lesion. Electronically Signed By: Jason Dahl acr/penrad:02/06/2021 12:54:24 ACR BI-RADS Category 2: Benign Finding(s) 3342F PARENCHYMAL PATTERN: (A) - The breast(s) demonstrate(s) scattered fibroglandular densities. BI-RADS CATEGORY: (2) - 2 RECOMMENDATION: (ANNUAL) - Recommend routine annual screening mammography. [id number] 1 year screening LATERALITY: (B)
== END 2021-02-06 10:22 | disposition home or self-care (01) ==
LOC: DI 10:21
DX: Z12.31 Encounter for screening mammogram for malignant neoplasm of breast (principal); Z85.3 Personal history of malignant neoplasm of breast

== ENCOUNTER 2021-02-10 11:11 | Outpatient (CLI) | payer MEDICAID ==
[2021-02-10 17:36] LABS: BASOPHILS # (AUTO) 0.1 10^3/uL (0.0-0.1); BASOPHILS % (AUTO) 0.8 %; EOSINOPHILS # (AUTO) 0.2 10^3/uL (0.0-0.7); EOSINOPHILS % (AUTO) 3.2 %; HCT - HEMATOCRIT 40.4 % (37.0-47.0); HGB - HEMOGLOBIN 13.4 g/dL (12.0-16.0); LYMPHOCYTES # (AUTO) 1.4 10^3/uL (1.5-3.5); LYMPHOCYTES % (AUTO) 22.6 %; MEAN CORPUSCULAR HEMOGLOBIN 32.2 pg (27.0-31.0); MEAN CORPUSCULAR HGB CONC 33.2 g/dL (32.0-36.0); MEAN CORPUSCULAR VOLUME 97.1 fL (81.0-99.0); MEAN PLATELET VOLUME 10.8 fL (7.9-10.8); MONOCYTES # (AUTO) 0.5 10^3/uL (0.0-1.0); MONOCYTES % (AUTO) 8.4 %; NEUTROPHILS # (AUTO) 4.1 10^3/uL (1.5-6.6); NEUTROPHILS % (AUTO) 64.8 %; PLT - PLATELET COUNT 299 10^3/uL (130-450); RED BLOOD COUNT 4.16 10^6/uL (4.20-5.40); WHITE BLOOD COUNT 6.3 x10^3/uL (4.8-10.8)
[2021-02-10 17:57] LABS: ALBUMIN 4.7 g/dL (3.2-5.5); ALBUMIN/GLOBULIN RATIO 1.9 (1.0-2.2); BILIRUBIN,TOTAL 0.6 mg/dL (0.2-1.0); CALCIUM 9.4 mg/dL (8.5-10.3); CREATININE 0.6 mg/dL (0.4-1.0); POTASSIUM 4.2 mmol/L (3.5-5.0); TOTAL PROTEIN 7.2 g/dL (6.7-8.2)
== END 2021-02-10 23:59 | disposition home or self-care (01) ==
LOC: LAB.WCP 11:11
PROVIDERS: ATTEND Internal Medicine Hematology & Oncology
DX: Z08 Encounter for follow-up examination after completed treatment for malignant neoplasm (principal); Z85.3 Personal history of malignant neoplasm of breast
CPT/HCPCS: 36415; 80053; 85025

== ENCOUNTER 2022-01-23 08:50 | Outpatient (CLI) | payer MEDICAID ==
--- NOTE | 2022-01-24 10:30 | Mammography Report ---
BILATERAL DIGITAL SCREENING MAMMOGRAM 3D/2D: 01/23/2022 CLINICAL: Routine screening. Personal history of right breast cancer. Comparison is made to exams dated: 02/06/2021 mammogram, 02/05/2020 mammogram, 07/23/2019 mammogram, and 01/15/2019 mammogram - [facility]. There are scattered areas of fibroglandular density in both breasts (category b / 25%-50% glandular t issue). There are benign post operative findings in the right breast. No significant masses, calcifications, or other findings are seen in either breast. There has been no significant interval change. IMPRESSION: BENIGN There is no mammographic evidence of malignancy. A 1 year screening mammogram is recommended. This exam was interpreted at Station ID: [id number]. NOTE: For mammograms, a report in lay terms will be sent to the patient. Approximately 15% of breast malignancies will not be visualized mammographically. In the management of a palpable breast mass, a negative mammogram must not discourage biopsy of a clinically suspicious lesion. Electronically Signed By: Ranjan collins/twan:01/23/2022 14:13:16 ACR BI-RADS Category 2: Benign Finding(s) 3342F PARENCHYMAL PATTERN: (A) - The breast(s) demonstrate(s) scattered fibroglandular densities. BI-RADS CATEGORY: (2) - 2 RECOMMENDATION: (ANNUAL) - Recommend routine annual screening mammography. [id number] 1 year screening LATERALITY: (B)
== END 2022-01-23 08:51 | disposition home or self-care (01) ==
LOC: DI 08:50
DX: Z12.31 Encounter for screening mammogram for malignant neoplasm of breast (principal); Z85.3 Personal history of malignant neoplasm of breast

== ENCOUNTER 2022-01-26 07:40 | Outpatient (CLI) | payer MEDICAID ==
[2022-01-26 08:00] LABS: BASOPHILS % (AUTO) 0.7 %; EOSINOPHILS # (AUTO) 0.1 10^3/uL (0.0-0.7); EOSINOPHILS % (AUTO) 1.7 %; HCT - HEMATOCRIT 38.8 % (37.0-47.0); LYMPHOCYTES # (AUTO) 1.9 10^3/uL (1.5-3.5); LYMPHOCYTES % (AUTO) 34.9 %; MEAN CORPUSCULAR HEMOGLOBIN 31.9 pg (27.0-31.0); MEAN CORPUSCULAR HGB CONC 33.5 g/dL (32.0-36.0); MEAN CORPUSCULAR VOLUME 95.1 fL (81.0-99.0); MEAN PLATELET VOLUME 9.7 fL (7.9-10.8); MONOCYTES # (AUTO) 0.5 10^3/uL (0.0-1.0); MONOCYTES % (AUTO) 9.8 %; NEUTROPHILS # (AUTO) 2.9 10^3/uL (1.5-6.6); NEUTROPHILS % (AUTO) 52.7 %; PLT - PLATELET COUNT 247 10^3/uL (130-450); RED BLOOD COUNT 4.08 10^6/uL (4.20-5.40); RED CELL DISTRIBUTION WIDTH 12.6 % (12.0-15.0); WHITE BLOOD COUNT 5.4 x10^3/uL (4.8-10.8)
[2022-01-26 08:19] LABS: ALBUMIN 4.6 g/dL (3.2-5.5); ALBUMIN/GLOBULIN RATIO 2.1 (1.0-2.2); BILIRUBIN,TOTAL 0.8 mg/dL (0.2-1.0); CALCIUM 9.7 mg/dL (8.5-10.3); CREATININE 0.6 mg/dL (0.4-1.0); POTASSIUM 4.3 mmol/L (3.5-5.0); TOTAL PROTEIN 6.8 g/dL (6.7-8.2)
[2022-01-26 08:23] LABS: CHOL/HDL RATIO 2.7 (<4.4); CHOLESTEROL 244 mg/dL; HDL CHOLESTEROL 91 mg/dL; LDL CHOLESTEROL,CALCULATED 128 mg/dL; LDL/HDL RATIO 1.4 (<4.4); TRIGLYCERIDES 124 mg/dL; VLDL CHOLESTEROL 25 mg/dL
[2022-01-26 08:36] LABS: THYROID STIMULATING HORMONE 2.25 uIU/mL (0.34-5.60)
[2022-01-26 08:37] LABS: FREE T3 3.43 pg/mL (2.5-3.9)
[2022-01-26 08:38] LABS: FREE T4 (FREE THYROXINE) 0.95 ng/dL (0.58-1.64)
[2022-01-26 12:43] LABS: ESTIMATED AVERAGE GLUCOSE 117 mg/dL (70-100); HEMOGLOBIN A1c% 5.7 % (4.27-6.07)
== END 2022-01-26 07:41 | disposition home or self-care (01) ==
LOC: LAB 07:40
PROVIDERS: ATTEND Internal Medicine Hematology & Oncology
DX: Z08 Encounter for follow-up examination after completed treatment for malignant neoplasm (principal); Z85.3 Personal history of malignant neoplasm of breast; E03.9 Hypothyroidism, unspecified; E78.5 Hyperlipidemia, unspecified; R73.9 Hyperglycemia, unspecified
CPT/HCPCS: 36415; 80053; 80061; 83036; 83721; 84439; 84443; 84481; 85025

== ENCOUNTER 2022-07-03 12:42 | Outpatient (CLI) | payer MEDICAID ==
--- NOTE | 2022-07-03 15:46 | XRAY Report ---
PROCEDURE: Knee 4 View RT INDICATIONS: RIGHT KNEE EFFUSION TECHNIQUE: 4 views of the right knee(s) were acquired. COMPARISON: None. FINDINGS: Bones: No fractures or dislocations. No suspicious bony lesions. Soft tissues: No joint effusion. No suspicious soft tissue calcifications. IMPRESSION: No acute fracture. No osseous lesion. If symptoms and/or clinical suspicion for patholog y continue, further assessment with repeat plain films, or advanced imaging (e.g., CT, MRI, or bone s can) is recommended for further assessment. Reviewed by: Suzanne Valdez MD on 07/03/2022 3:45 PM PST Approved by: Suzanne Valdez MD on 07/03/2022 3:45 PM PST Station ID: [id number]
== END 2022-07-03 12:43 | disposition home or self-care (01) ==
LOC: DI.S 12:42
PROVIDERS: ATTEND Physician Assistant
DX: M25.561 Pain in right knee (principal)

== ENCOUNTER 2022-08-02 12:50 | Outpatient (CLI) | payer MEDICARE ==
--- NOTE | 2022-08-02 13:21 | DEXA Report ---
PROCEDURE: Dexa Spine and/or Hip INDICATIONS: POST MENOPAUSAL TECHNIQUE: Dual energy x-ray absorptiometry (DXA) was performed on a [employer] System. Regions measur ed are the AP Spine, femoral neck, and if needed forearm. COMPARISON: 07/28/2020 FINDINGS: Lumbar Spine: Bone Mineral Density 0.99 g/cm/cm,T score -1.6, previously -1.7 Left Femoral Neck: Bone Mineral Density 0.86 g/cm/cm, T score -1.3, previously -1.2 Left Hip: Bone Mineral Density 0.88 g/cm/cm,T score -1.1, previously -0.9 (T score greater or equal to -1.0: NORMAL) (T score from -1.1 to -2.4: OSTEOPENIA) (T score less than or equal to -2.5 to: OSTEOPOROSIS) Impression: Osteopenia of the left hip, femoral neck, and lumbar spine as above. Elevated fracture risk. T-scores are not significantly changed. Patients with diagnosis of osteoporosis or osteopenia should have regular bone mineral density assess ment. For those eligible for Medicare, routine testing is allowed once every 2 years. Testing frequ ency can be increased for patients who have rapidly progressing disease or for those who are receivin g medical therapy to restore bone mass. Reviewed by: Adam Kumar MD on 08/02/2022 1:19 PM PDT Approved by: Adam Kumar MD on 08/02/2022 1:19 PM PDT Station ID: [id number]
== END 2022-08-02 12:51 | disposition home or self-care (01) ==
LOC: DI 12:50
PROVIDERS: ATTEND Family Medicine
DX: M85.89 Other specified disorders of bone density and structure, multiple sites (principal); Z78.0 Asymptomatic menopausal state

== ENCOUNTER 2022-11-23 07:13 | Outpatient (CLI) | payer MEDICARE ==
--- NOTE | 2022-11-23 15:14 | Ultrasound Report ---
PROCEDURE: Ext Limited Non Vascular INDICATIONS: PAIN IN LEFT KNEE TECHNIQUE: Real-time scanning was performed of the left knee, with image documentation. COMPARISON: None. FINDINGS: Focused ultrasound examination of left popliteal fossa shows no fluid collection or soft t issue mass. IMPRESSION: No abnormality is noted in left popliteal fossa. Reviewed by: Victoriano Salinas MD on 11/23/2022 3:13 PM PDT Approved by: Victoriano Salinas MD on 11/23/2022 3:13 PM PDT Station ID: [id number]
== END 2022-11-23 07:14 | disposition home or self-care (01) ==
LOC: DI 07:13
PROVIDERS: ATTEND Nurse Practitioner Family
DX: M25.562 Pain in left knee (principal)

== ENCOUNTER 2023-02-19 10:45 | Outpatient (CLI) | payer MEDICARE ==
--- NOTE | 2023-02-21 11:18 | Mammography Report ---
BILATERAL DIGITAL DIAGNOSTIC MAMMOGRAM 3D/2D WITH LATEROMEDIAL SPOT COMPRESSION: 02/19/2023 CLINICAL: Diffuse right breast pain. Palpable right breast lump. Due for bilateral. Comparison is made to exams dated: 01/23/2022 mammogram, 02/06/2021 mammogram, 02/05/2020 mammogram, 12/18 breast MRI, 07/23/2019 mammogram, and 01/15/2019 mammogram - [facility]. There are scattered areas of fibroglandular density in both breasts (category b / 25%-50% glandular t issue). The patient is status post right breast lumpectomy. In the area of clinical concern in the right tito st upper outer quadrant adjacent to the lumpectomy bed, there are similar post surgical changes. In t he right breast, lower inner quadrant, there is no mammographic abnormality in the area of clinical c oncern as indicated by the triangular shaped marker. No other significant masses, calcifications, or other findings are seen in either breast. IMPRESSION: INCOMPLETE: NEEDS ADDITIONAL IMAGING EVALUATION 1) Status post right lumpectomy. No definite mammographic abnormality in the area of clinical concer n in the upper outer quadrant at the lumpectomy bed. Recommend further evaluation with targeted breas t ultrasound, which will immediately follow this exam. 2) No mammographic abnormality in the area clinical in the right breast lower inner quadrant. Recomme nd further evaluation with targeted breast ultrasound, which will immediately follow this exam. This exam was interpreted at Station ID: [id number]. NOTE: For mammograms, a report in lay terms will be sent to the patient. Approximately 15% of breast malignancies will not be visualized mammographically. In the management of a palpable breast mass, a negative mammogram must not discourage biopsy of a clinically suspicious lesion. Electronically Signed By: Alexandra Moon M.D. esb/:02/19/2023 15:24:03 ACR BI-RADS Category 0: Incomplete 3340F PARENCHYMAL PATTERN: (A) - The breast(s) demonstrate(s) scattered fibroglandular densities. BI-RADS CATEGORY: (0) - 0 Ultrasound [id number] Immediate follow-up LATERALITY: (B)
--- NOTE | 2023-02-21 11:18 | Ultrasound Report ---
LIMITED ULTRASOUND OF RIGHT BREAST AND AXILLA: 02/19/2023 CLINICAL: Patient Palpable right breast lumps. Comparison is made to exams dated: 02/19/2023 mammogram, 01/23/2022 mammogram, 02/06/2021 mammogram, 01/18 ultrasound, 02/05/2020 mammogram, and 01/04/2020 breast MRI - [facility]. Color flow and real-time ultrasound of the right breast 5-6 o'clock, 10-12 o'clock, and axilla region s were performed. Feldman scale images of the real-time examination were reviewed. In the area of clinical concern in the upper outer quadrant at 11 o'clock, 4 cm from the nipple, ther e is an irregular hypoechoic mass with indistinct margins measuring approximately 11 x 12 x 15 mm. At 10 o'clock, 4 cm from the nipple, there are post surgical changes and scarring from prior lumpecto my. In the area of clinical concern in the lower inner quadrant, there is no sonographic abnormality visu alized. [employer] images were taken at 5 and 6 o'clock, 5 cm from the nipple. No abnormal lymph nodes are seen in the right axilla. IMPRESSION: SUSPICIOUS OF MALIGNANCY 1) Right breast 15 mm mass at 11 o'clock position just superior the lumpectomy scar (seen at 10 o'trudy ck), which corresponds to area of clinical concern. Finding is suspicious. Recommend ultrasound guide d biopsy. 2) No sonographic or mammographic abnormality in the area of clinical concern in the lower inner quad rant. Clinical follow-up is recommended, and further management of palpable abnormalities or other fo alfred signs or symptoms should be based on the results of clinical evaluation. If symptoms persist or b ecome more focal in nature, further clinical evaluation should be considered. Findings and recommendations were discussed with the patient by Dr. Blanton at the time of imaging complet ion. This exam was interpreted at Station ID: [id number]. Electronically Signed By: Alexandra Moon M.D. esb/:02/21/2023 00:46:36 Ultrasound BI-RADS: 4 Suspicious for malignancy BI-RADS CATEGORY: (4) - 4 Biopsy [id number] Immediate follow-up LATERALITY: (R)
== END 2023-02-19 10:46 | disposition home or self-care (01) ==
LOC: DI 10:45
PROVIDERS: ATTEND Nurse Practitioner Family
DX: N63.11 Unspecified lump in the right breast, upper outer quadrant (principal); N64.4 Mastodynia; Z85.3 Personal history of malignant neoplasm of breast

== ENCOUNTER 2023-03-11 13:48 | Outpatient (CLI) | payer MEDICARE ==
[2023-03-11] MEDS ORDERED: LIDOCAINE-MPF 1% 5 ML VIAL ONE (14:18)
[2023-03-11] MEDS ORDERED: LIDOCAINE 1%-EPI 1:100000 50 ML VIAL ONE (14:18)
[2023-03-11] MEDS ORDERED: LIDOCAINE-MPF 1% 5 ML VIAL TD ONE (15:40)
[2023-03-11] MEDS ORDERED: LIDOCAINE 1%-EPI 1:100000 50 ML VIAL SUBQ ONE (16:00)
--- NOTE | 2023-03-14 10:10 | Mammography Report ---
UNILATERAL RIGHT DIGITAL DIAGNOSTIC MAMMOGRAM WITH AXILLARY TAIL POST-PROCEDURE IMAGING FOR MARKER PL ACEMENT: 03/11/2023 CLINICAL: Post right breast ultrasound biopsy clip placement imaging. Comparison is made to exams dated: 02/19/2023 mammogram, 01/23/2022 mammogram, and 02/06/2021 mammogram - [facility]. There are scattered areas of fibroglandular density in the right breast (category b / 25%-50% glandul ar tissue). There is a marker clip in the appropriate position in the right breast anterior depth lateral region seen on the craniocaudal view only. This marker clip placement is at the biopsy site. IMPRESSION: POST PROCEDURE MAMMOGRAM FOR MARKER PLACEMENT There was a successful marker clip placement in the right breast anterior depth lateral region seen o n the craniocaudal view only. This exam was interpreted at Station ID: [id number]. NOTE: For mammograms, a report in lay terms will be sent to the patient. Approximately 15% of breast malignancies will not be visualized mammographically. In the management of a palpable breast mass, a negative mammogram must not discourage biopsy of a clinically suspicious lesion. Electronically Signed By: Judith Booth M.D. [facility]/:03/13/2023 18:03:24 ACR BI-RADS Category Post-procedure mammogram for marker placement PARENCHYMAL PATTERN: (A) - The breast(s) demonstrate(s) scattered fibroglandular densities. BI-RADS CATEGORY: () - Unspecified - other recall n/a LATERALITY: (B)
--- NOTE | 2023-03-14 15:46 | Ultrasound Report ---
ULTRASOUND GUIDED BIOPSY RIGHT BREAST USING VACUUM DEVICE WITH MARKING DEVICE INSERTED AND POST DIGIT AL MAMMOGRAPHIC IMAGIN03/11/2023 CLINICAL: Right breast mass. PATIENT CONSENT: Risks (minor bleeding, infection, vasovagal reaction and repeat procedure), benefits and alternatives were explained to the patient and written informed consent was obtained. Correlation is made to exams dated: 02/19/2023 ultrasound, 02/19/2023 mammogram, and 01/23/2022 mammogra [facility]. An ultrasound guided biopsy using real-time ultrasound was performed for the indistinct irregular sha ped mass located in the right breast at 11 o'clock anterior depth. This was described on the previou s mammography and ultrasound reports. The skin was prepped in the usual manner. Local anesthetic was administered to the access site. The abnormality was approached from the lateral aspect. A biopsy needle was placed adjacent to the abno rmality under ultrasound guidance. Once the needle was documented to be in the correct location, a s pecimen was obtained using the Mammotome biopsy system. A titanium clip was inserted into the biopsy cavity. A sterile dressing was applied to the access si te. The specimen was sent to the laboratory for pathological analysis. IMPRESSION: ULTRASOUND GUIDED BIOPSY BENIGN Ultrasound guided biopsy of the mass in the right breast at 11 o'clock anterior depth was successful. Pathology demonstrate breast tissue with dense fibrosis and focal fat necrosis, negative for in situ or invasive carcinoma. Pathology results are concordant with imaging findings. Return to screening mammogram schedule is recommended. This exam was interpreted at Station ID: [id number]. Judith Bosch M.D. [facility]/:03/14/2023 11:10:16 BI-RADS CATEGORY: () - Mammogram [id number] 1 year screening LATERALITY: (B)
== END 2023-03-11 13:49 | disposition home or self-care (01) ==
LOC: DI 13:48
PROVIDERS: ATTEND Nurse Practitioner Family
DX: N63.11 Unspecified lump in the right breast, upper outer quadrant (principal); R92.321 Mammographic fibroglandular density, right breast
CPT/HCPCS: 19083; 77065; J3490